=== PATIENT | male | born 1975 | race Caucasian/White ===

== ENCOUNTER 2018-10-19 18:51 | Inpatient (IN) | payer BC ==
[~2018-10-19] VITALS: Ht 180.3 cm; Wt 83.6 kg
[2018-10-19] MEDS ORDERED: IV NORMAL SALINE 1000ML BAG 1,000 ML IV ONE (19:45)
--- NOTE | 2018-10-19 19:48 | PHYS DOC ---
Past Medical History Past Medical History: Alcoholism Adult General Chief Complaint Chief Complaint: ALCOHOL INTOXICATION HPI HPI Patient is a 43 year old presented to the ER today seeking help with alcohol detox. Patient is heavy drinker for about 15 years. He was in rehab during [place] time last year. He was then sober for a month then got relapsed. He would like to get into detox program again. Patient denied any chest pain, no abdominal pain, no nausea or vomiting. Patient denied suicidal ideation or homicidal ideation . Patient said he tried to detox himself at home in the past , he had severe withdrawal seizure. Review of Systems Review of Systems Constitutional: Denies fever or chills [] Eyes: Denies change in visual acuity, redness, or eye pain [] HENT: Denies nasal congestion or sore throat [] Respiratory: Denies cough or shortness of breath [] Cardiovascular: No additional information not addressed in HPI [] GI: Denies abdominal pain, nausea, vomiting, bloody stools or diarrhea [] : Denies dysuria or hematuria [] Musculoskeletal: Denies back pain or joint pain [] Integument: Denies rash or skin lesions [] Neurologic: Denies headache, focal weakness or sensory changes [] Endocrine: Denies polyuria or polydipsia Psych: positive for anxiety, denied SUICIDAL IDEATION OR HOMICIDAL IDEATION. All other systems were reviewed and found to be within normal limits, except as documented in this note. Current Medications Current Medications Current Medications Medications (Trade) Dose Ordered Sig/Anaya Start Time Stop Time Status Last Admin Dose Admin Acetaminophen (Tylenol) 650 mg PRN Q4HRS PRN 10/19/18 23:15 10/20/18 23:14 Chlordiazepoxide (Librium) 50 mg PRN Q1HR PRN 10/19/18 23:15 10/20/18 00:57 50 MG Ondansetron HCl (Zofran) 4 mg PRN Q8HRS PRN 10/19/18 23:15 10/20/18 23:14 Potassium Chloride (Klor-Con) 40 meq 1X ONCE 10/19/18 20:30 10/19/18 20:31 DC 10/19/18 20:30 40 MEQ Sodium Chloride 1,000 ml @ 1,000 mls/hr 1X ONCE 10/19/18 19:45 10/19/18 20:44 DC 10/19/18 19:57 1,000 MLS/HR Allergies Allergies Allergies Coded Allergies Type Severity Reaction Last Updated Verified No Known Drug Allergies 10/19/18 No Physical Exam Physical Exam Constitutional: Well developed, well nourished, no acute distress, non-toxic appearance. [] HENT: Normocephalic, atraumatic, bilateral external ears normal, oropharynx moist, no oral exudates, nose normal. [] Eyes: PERRLA, EOMI, conjunctiva normal, no discharge. [] Neck: Normal range of motion, no tenderness, supple, no stridor. [] Cardiovascular:Heart rate regular rhythm, no murmur [] Lungs & Thorax: Bilateral breath sounds clear to auscultation [] Abdomen: Bowel sounds normal, soft, no tenderness, no masses, no pulsatile masses. [] Skin: Warm, dry, no erythema, no rash. [] Back: No tenderness, no CVA tenderness. [] Extremities: No tenderness, no cyanosis, no clubbing, ROM intact, no edema. [] Neurologic: Alert and oriented X 3, normal motor function, normal sensory function, no focal deficits noted. [] Psychologic: Affect normal, judgement normal, mood normal. [] Current Patient Data Vital Signs Vital Signs Date Time Temp Pulse Resp B/P (MAP) Pulse Ox O2 Delivery O2 Flow Rate FiO2 10/19/18 21:14 80 19 146/87 (106) 99 Room Air 10/19/18 19:35 97.7 97.7 Lab Values Laboratory Tests Test 10/19/18 19:20 10/19/18 19:44 Urine Collection Type Unknown Urine Color Yellow Urine Clarity Clear Urine pH 6.0 Urine Specific [place] 1.015 Urine Protein Negative mg/dL (NEG-TRACE) Urine Glucose (UA) Negative mg/dL (NEG) Urine Ketones (Stick) Negative mg/dL (NEG) Urine Blood Negative (NEG) Urine Nitrite Negative (NEG) Urine Bilirubin Negative (NEG) Urine Urobilinogen Dipstick 0.2 mg/dL (0.2 mg/dL) Urine Leukocyte Esterase Negative (NEG) Urine RBC Occ /HPF (0-2) Urine WBC Occ /HPF (0-4) Urine Squamous Epithelial Cells Few /LPF Urine Bacteria 0 /HPF (0-FEW) Urine Mucus Slight /LPF Urine Opiates Screen Neg (NEG) Urine Methadone Screen Neg (NEG) Urine Barbiturates Neg (NEG) Urine Phencyclidine Screen Neg (NEG) Urine Amphetamine/Methamphetamine Neg (NEG) Urine Benzodiazepines Screen Neg (NEG) Urine Cocaine Screen Neg (NEG) Urine Cannabinoids Screen Neg (NEG) Urine Ethyl Alcohol Pos (NEG) White Blood Count 8.4 x10^3/uL (4.0-11.0) Red Blood Count 5.09 x10^6/uL (4.30-5.70) Hemoglobin 16.2 g/dL (13.0-17.5) Hematocrit 47.1 % (39.0-53.0) Mean Corpuscular Volume 93 fL (79-100) Mean Corpuscular Hemoglobin 32 pg (25-35) Mean Corpuscular Hemoglobin Concent 34 g/dL (31-37) Red Cell Distribution Width 13.9 % (11.5-14.5) Platelet Count 269 x10^3/uL (140-400) Neutrophils (%) (Auto) 49 % (31-73) Lymphocytes (%) (Auto) 42 % (24-48) Monocytes (%) (Auto) 8 % (0-9) Eosinophils (%) (Auto) 1 % (0-3) Basophils (%) (Auto) 1 % (0-3) Neutrophils # (Auto) 4.1 x10^3uL (1.8-7.7) Lymphocytes # (Auto) 3.6 x10^3/uL (1.0-4.8) Monocytes # (Auto) 0.6 x10^3/uL (0.0-1.1) Eosinophils # (Auto) 0.1 x10^3/uL (0.0-0.7) Basophils # (Auto) 0.1 x10^3/uL (0.0-0.2) Prothrombin Time 13.1 SEC (11.7-14.0) Prothrombin Time INR 1.0 (0.8-1.1) PTT 31 SEC (24-38) Sodium Level 142 mmol/L (136-145) Potassium Level 3.3 mmol/L (3.5-5.1) L Chloride Level 105 mmol/L (98-107) Carbon Dioxide Level 26 mmol/L (21-32) Anion Gap 11 (6-14) Blood Urea Nitrogen 14 mg/dL (8-26) Creatinine 1.1 mg/dL (0.7-1.3) Estimated GFR (Cockcroft-Gault) 73.8 BUN/Creatinine Ratio 13 (6-20) Glucose Level 125 mg/dL (70-99) H Calcium Level 8.0 mg/dL (8.5-10.1) L Magnesium Level 2.2 mg/dL (1.8-2.4) Total Bilirubin 0.4 mg/dL (0.2-1.0) Aspartate Amino Transferase (AST) 39 U/L (15-37) H Alanine Aminotransferase (ALT) 32 U/L (16-63) Alkaline Phosphatase 76 U/L (46-116) Total Protein 7.0 g/dL (6.4-8.2) Albumin 3.5 g/dL (3.4-5.0) Albumin/Globulin Ratio 1.0 (1.0-1.7) Lipase 114 U/L (73-393) Salicylates Level < 2.8 mg/dL (2.8-20.0) L Salicylate Last Dose Date Salicylate Last Dose Time Acetaminophen Level < 2 mcg/ml (10-30) L Acetaminophen Last Dose Date Acetaminophen Last Dose Time Ethyl Alcohol Level 299 mg/dL (0-10) H Laboratory Tests 10/19/18 19:44 Laboratory Tests 10/19/18 19:44 EKG EKG [] Radiology/Procedures Radiology/Procedures [] Course & Med Decision Making Course & Med Decision Making Pertinent Labs and Imaging studies reviewed. (See chart for details) Patient was evaluated by PAT team, no outpatient detox available for patient. Most of detox centers recommended patient to be admitted for medical detox for 24 hours before they can accept patient due to previous withdrawal seizure. Dragon Disclaimer Dragon Disclaimer This electronic medical record was generated, in whole or in part, using a voice recognition dictation system. Departure Departure Impression: Primary Impression: Alcohol abuse Additional Impression: Anxiety Disposition: 09 ADMITTED INPATIENT Admitting Physician: Faina Barnett Condition: STABLE Referrals: BARTOLO RUBY MD (PCP) Problem Qualifiers SIVAN MIRAMONTES DO Oct 19, 2018 19:48
[2018-10-19 19:53] LABS: BASO # 0.1 x10^3/uL (0.0-0.2); BASO % 1 % (0-3); EOS # 0.1 x10^3/uL (0.0-0.7); EOS % 1 % (0-3); HEMATOCRIT 47.1 % (39.0-53.0); HEMOGLOBIN 16.2 g/dL (13.0-17.5); LYMPH # 3.6 x10^3/uL (1.0-4.8); LYMPH % 42 % (24-48); MEAN CORPUSCULAR HEMOGLOBIN 32 pg (25-35); MEAN CORPUSCULAR HGB CONC 34 g/dL (31-37); MEAN CORPUSCULAR VOLUME 93 fL (79-100); MONO # 0.6 x10^3/uL (0.0-1.1); MONO % 8 % (0-9); NEUT # 4.1 x10^3uL (1.8-7.7); NEUT % 49 % (31-73); PLATELET COUNT 269 x10^3/uL (140-400); RED BLOOD COUNT 5.09 x10^6/uL (4.30-5.70); RED CELL DISTRIBUTION WIDTH 13.9 % (11.5-14.5); WHITE BLOOD COUNT 8.4 x10^3/uL (4.0-11.0)
[2018-10-19 19:54] LABS: BILIRUBIN,URINE NEGATIVE (NEG); CLARITY,URINE CLEAR; COLOR,URINE YELLOW; NITRITE,URINE NEGATIVE (NEG); PROTEIN,URINE NEGATIVE (NEG-TRACE); UROBILINOGEN,URINE 0.2 mg/dL (0.2 mg/dL)
[2018-10-19 19:59] LABS: BACTERIA,URINE 0 /HPF (0-FEW); RBC,URINE OCC /HPF (0-2); SQUAMOUS EPITHELIAL CELL,UR FEW /LPF; WBC,URINE OCC /HPF (0-4)
[2018-10-19 20:01] LABS: BARBITURATES NEG (NEG); BENZODIAZEPINES NEG (NEG); CANNABINOIDS NEG (NEG); COCAINE NEG (NEG); METHADONE NEG (NEG); OPIATES NEG (NEG); PHENCYCLIDINE NEG (NEG)
[2018-10-19 20:01] LABS: PROTHROMBIN TIME PATIENT 13.1 SEC (11.7-14.0)
[2018-10-19 20:04] LABS: AMPHETAMINE/METHAMPHETAMINE NEG (NEG)
[2018-10-19 20:08] LABS: CREATININE 1.1 mg/dL (0.7-1.3); GFR 73.8; POTASSIUM 3.3 mmol/L (3.5-5.1)
[2018-10-19 20:09] LABS: ACETAMIN < 2 mcg/ml (10-30); ETHANOL 299 mg/dL (0-10); SALIC < 2.8 mg/dL (2.8-20.0)
[2018-10-19 20:13] LABS: ALBUMIN 3.5 g/dL (3.4-5.0); MAGNESIUM 2.2 mg/dL (1.8-2.4); TOTAL BILIRUBIN 0.4 mg/dL (0.2-1.0)
[2018-10-19] MEDS ORDERED: chlordiazePOXIDE HCL 25 MG CAPSULE PO ONE (20:30)
[2018-10-19] MEDS ORDERED: POTASSIUM CHLORIDE 20 MEQ TABLET.ER. PO ONE (20:30)
[2018-10-19] MEDS ORDERED: ACETAMINOPHEN 325 MG TABLET. PO PRN (23:15)
[2018-10-19] MEDS ORDERED: ONDANSETRON PF 4 MG/2 ML VIAL. IV PRN (23:15)
[2018-10-19] MEDS ORDERED: chlordiazePOXIDE HCL 25 MG CAPSULE PO PRN (23:15)
[2018-10-19] MEDS: IV NORMAL SALINE 1000ML BAG 1,000 ML IV SCH (23:30)
[2018-10-19] MEDS ORDERED: MULTIVIT INFUSN,ADULT 4,VIT K 10 ML, THIAMINE INJ 100 MG, FOLIC ACID INJ 1 MG in IV NOR... IV ONE (23:45)
[2018-10-20] VITALS (7 sets, daily range): BP systolic 118–149; BP diastolic 81–93
--- NOTE | 2018-10-20 08:57 | PDOC1 ---
History and Physical Date of Admission Date of Admission DATE: 10/20/18 TIME: 08:54 Identification/Chief Complaint Chief Complaint Alcohol withdrawal Source Source: Patient History of Present Illness History of Present Illness 43 year old presented to the ER 10/19 seeking help with alcohol detox. Patient is heavy drinker for about 15 years. He was in rehab during [place] time last year. He was then sober for a month then got relapsed. He would like to get into detox program again. Patient denied any chest pain, no abdominal pain, no nausea or vomiting. Patient denied suicidal ideation or homicidal ideation. Patient said he tried to detox himself at home in the past, he had severe withdrawal seizures. He is tremulous even when his ETOH level is less than 300mg /dL and gets confused quickly per his own history Past Medical History Cardiovascular: No pertinent hx Pulmonary: No pertinent hx GI: No pertinent hx Heme/Onc: No pertinent hx Hepatobiliary: No pertinent hx Psych: Addictions Rheumatologic: No pertinent hx Infectious disease: No pertinent hx ENT: No pertinent hx Renal/: No pertinent hx Endocrine: No pertinent hx Dermatology: No pertinent hx Past Surgical History Past Surgical History: No pertinent history Family History Family History: Alcohol Abuse, Drug Abuse Social History Smoke: <1 pack per day ALCOHOL: heavy Drugs: None Current Problem List Problem List Problems Medical Problems: (1) Alcohol abuse Status: Acute (2) Anxiety Status: Acute Current Medications Current Medications Current Medications Sodium Chloride 1,000 ml @ 1,000 mls/hr 1X ONCE IV Last administered on at 19:57; Start 10/19/18 at 19:45; Stop 10/19/18 at 20:44; Status DC Potassium Chloride (Klor-Con) 40 meq 1X ONCE PO Last administered on at 20:30; Start 10/19/18 at 20:30; Stop 10/19/18 at 20:31; Status DC Chlordiazepoxide (Librium) 50 mg 1X ONCE PO Last administered on 10/19/18at 20: 30; Start 10/19/18 at 20:30; Stop 10/19/18 at 20:31; Status DC Ondansetron HCl (Zofran) 4 mg PRN Q8HRS PRN IV NAUSEA/VOMITING 1ST CHOICE; Start 10/19/18 at 23:15; Stop 10/20/18 at 23:14 Sodium Chloride 1,000 ml @ 100 mls/hr Q10H IV ; Start 10/19/18 at 23:30; Stop 10/20/18 at 23:29 Acetaminophen (Tylenol) 650 mg PRN Q4HRS PRN PO FEVER; Start 10/19/18 at 23:15 ; Stop 10/20/18 at 23:14 Multivitamins 10 ml/Thiamine HCl 100 mg/Folic Acid 1 mg/Sodium Chloride 1,011.2 ml @ 100 mls/ hr 1X ONCE IV Last administered on 10/20/18at 00:20; Start at 23:45; Stop 10/20/18 at 09:51 Multivitamins (Thera M Plus) 1 tab DAILY PO ; Start 10/20/18 at 09:00 Folic Acid (Folic Acid) 1 mg DAILY PO ; Start 10/20/18 at 09:00 Thiamine Mononitrate (Vitamin B-1) 100 mg DAILY PO ; Start 10/20/18 at 09:00 Chlordiazepoxide (Librium) 50 mg PRN Q1HR PRN PO For CIWA 8-14 Last administered on 10/20/18at 00:57; Start 10/19/18 at 23:15 Allergies Allergies: Coded Allergies: No Known Drug Allergies (Unverified , 10/19/18) ROS General: YES: Chills, Fatigue, Malaise PSYCHOLOGICAL ROS: YES: Anxiety; No: Behavioral Disorder, Concentration difficultie, Decreased libido, Depression, Disorientation, Hallucinations, Hostility, Irritablity, Memory difficulties, Mood Swings, Obsessive thoughts, Physical abuse, Sexual abuse, Sleep disturbances, Suicidal ideation, Other Eyes: No Blurry vision, No Decreased vision, No Double vision, No Dry eyes, No Excessive tearing, No Eye Pain, No Itchy Eyes, No Loss of vision, No Photophobia , No Scotomata, No Uses contacts, No Uses glasses, No Other HEENT: No: Heacaches, Visual Changes, Hearing change, Nasal congestion, Nasal discharge, Oral lesions, Sinus pain, Sore Throat, Epistaxis, Sneezing, Snoring, Tinnitus, Vertigo, Vocal changes, Other ALLERGY AND IMMUNOLOGY: No: Hives, Insect Bite Sensitivity, Itchy/Watery Eyes, Nasal Congestion, Post Nasal Drip, Seasonal Allergies, Other Hematological and Lymphatic: No: Bleeding Problems, Blood Clots, Blood Transfusions, Brusing, Night Sweats, Pallor, Swollen Lymph Nodes, Other ENDOCRINE: No: Breast Changes, Galactorrhea, Hair Pattern Changes, Hot Flashes , Malaise/lethargy, Mood Swings, Palpitations, Polydipsia/polyuria, Skin Changes , Temperature Intolerance, Unexpected Weight Changes, Other Breast: No New/Changing Breast Lumps, No Nipple changes, No Nipple discharge, No Other Respiratory: No: Cough, Hemoptysis, Orthopnea, Pleuritic Pain, Shortness of breath, SOB with excertion, Sputum Changes, Stridor, Tachypnea, Wheezing, Other Cardiovascular: No Chest Pain, No Palpitations, No Orthopnea, No Paroxysmal Noc. Dyspnea, No Edema, No Lt Headedness, No Other Gastrointestinal: Yes Nausea, Yes Abdominal Pain; No Vomiting, No Diarrhea, No Constipation, No Melena, No Hematochezia, No Other Genitourinary: No Dysuria, No Frequency, No Incontinence, No Hematuria, No Retention, No Discharge, No Urgency, No Pain, No Flank Pain, No Other, No , No , No , No , No , No , No Musculoskeletal: Yes Gait Disturbance; No Joint Pain, No Joint Stiffness, No Joint Swelling, No Muscle Pain, No Muscular Weakness, No Pain In:, No Swelling In:, No Other Neurological: No Behavorial Changes, No Bowel/Bladder ControlChng, No Confusion , No Dizziness, No Gait Disturbance, No Headaches, No Impaired Coord/balance, No Memory Loss, No Numbness/Tingling, No Seizures, No Speech Problems, No Tremors, No Visual Changes, No Weakness, No Other Skin: No Dry Skin, No Eczema, No Hair Changes, No Lumps, No Mole Changes, No Mottling, No Nail Changes, No Pruritus, No Rash, No Skin Lesion Changes, No Other, No Acne Physical Exam General: Alert, Cooperative, mild distress HEENT: Atraumatic, PERRLA, EOMI, Mucous membr. moist/pink, Other (horizontal nystagmus) Lungs: Clear to auscultation, Normal air movement Heart: S1S2, RRR Abdomen: Normal bowel sounds, Soft, No tenderness, No hepatosplenomegaly, No masses Male Genitals Exam: normal genitalia, normal prostate Extremities: No clubbing, No cyanosis, No edema, Normal pulses, No tenderness/ swelling Skin: No rashes, No breakdown, No significant lesion Neuro: Normal gait, Normal speech, Strength at 5/5 X4 ext, Normal tone, Sensation intact, Cranial nerves 3-12 NL, Reflexes 2+ Psych/Mental Status: Mental status NL, Mood NL Vitals Vitals Vital Signs Date Time Temp Pulse Resp B/P (MAP) Pulse Ox O2 Delivery O2 Flow Rate FiO2 10/20/18 07:00 97.7 63 17 135/86 (102) 95 Room Air 97.7 Labs Labs Laboratory Tests Test 10/19/18 19:20 10/19/18 19:44 Urine Collection Type Unknown Urine Color Yellow Urine Clarity Clear Urine pH 6.0 Urine Specific [place] 1.015 Urine Protein Negative mg/dL (NEG-TRACE) Urine Glucose (UA) Negative mg/dL (NEG) Urine Ketones (Stick) Negative mg/dL (NEG) Urine Blood Negative (NEG) Urine Nitrite Negative (NEG) Urine Bilirubin Negative (NEG) Urine Urobilinogen Dipstick 0.2 mg/dL (0.2 mg/dL) Urine Leukocyte Esterase Negative (NEG) Urine RBC Occ /HPF (0-2) Urine WBC Occ /HPF (0-4) Urine Squamous Epithelial Cells Few /LPF Urine Bacteria 0 /HPF (0-FEW) Urine Mucus Slight /LPF Urine Opiates Screen Neg (NEG) Urine Methadone Screen Neg (NEG) Urine Barbiturates Neg (NEG) Urine Phencyclidine Screen Neg (NEG) Urine Amphetamine/Methamphetamine Neg (NEG) Urine Benzodiazepines Screen Neg (NEG) Urine Cocaine Screen Neg (NEG) Urine Cannabinoids Screen Neg (NEG) Urine Ethyl Alcohol Pos (NEG) White Blood Count 8.4 x10^3/uL (4.0-11.0) Red Blood Count 5.09 x10^6/uL (4.30-5.70) Hemoglobin 16.2 g/dL (13.0-17.5) Hematocrit 47.1 % (39.0-53.0) Mean Corpuscular Volume 93 fL (79-100) Mean Corpuscular Hemoglobin 32 pg (25-35) Mean Corpuscular Hemoglobin Concent 34 g/dL (31-37) Red Cell Distribution Width 13.9 % (11.5-14.5) Platelet Count 269 x10^3/uL (140-400) Neutrophils (%) (Auto) 49 % (31-73) Lymphocytes (%) (Auto) 42 % (24-48) Monocytes (%) (Auto) 8 % (0-9) Eosinophils (%) (Auto) 1 % (0-3) Basophils (%) (Auto) 1 % (0-3) Neutrophils # (Auto) 4.1 x10^3uL (1.8-7.7) Lymphocytes # (Auto) 3.6 x10^3/uL (1.0-4.8) Monocytes # (Auto) 0.6 x10^3/uL (0.0-1.1) Eosinophils # (Auto) 0.1 x10^3/uL (0.0-0.7) Basophils # (Auto) 0.1 x10^3/uL (0.0-0.2) Prothrombin Time 13.1 SEC (11.7-14.0) Prothromb Time International Ratio 1.0 (0.8-1.1) Activated Partial Thromboplast Time 31 SEC (24-38) Sodium Level 142 mmol/L (136-145) Potassium Level 3.3 mmol/L (3.5-5.1) Chloride Level 105 mmol/L (98-107) Carbon Dioxide Level 26 mmol/L (21-32) Anion Gap 11 (6-14) Blood Urea Nitrogen 14 mg/dL (8-26) Creatinine 1.1 mg/dL (0.7-1.3) Estimated GFR (Cockcroft-Gault) 73.8 BUN/Creatinine Ratio 13 (6-20) Glucose Level 125 mg/dL (70-99) Calcium Level 8.0 mg/dL (8.5-10.1) Magnesium Level 2.2 mg/dL (1.8-2.4) Total Bilirubin 0.4 mg/dL (0.2-1.0) Aspartate Amino Transf (AST/SGOT) 39 U/L (15-37) Alanine Aminotransferase (ALT/SGPT) 32 U/L (16-63) Alkaline Phosphatase 76 U/L (46-116) Total Protein 7.0 g/dL (6.4-8.2) Albumin 3.5 g/dL (3.4-5.0) Albumin/Globulin Ratio 1.0 (1.0-1.7) Lipase 114 U/L (73-393) Salicylates Level < 2.8 mg/dL (2.8-20.0) Salicylate Last Dose Date Salicylate Last Dose Time Acetaminophen Level < 2 mcg/ml (10-30) Acetaminophen Last Dose Date Acetaminophen Last Dose Time Ethyl Alcohol Level 299 mg/dL (0-10) Laboratory Tests Test 10/19/18 19:20 10/19/18 19:44 Urine Collection Type Unknown Urine Color Yellow Urine Clarity Clear Urine pH 6.0 Urine Specific [place] 1.015 Urine Protein Negative mg/dL (NEG-TRACE) Urine Glucose (UA) Negative mg/dL (NEG) Urine Ketones (Stick) Negative mg/dL (NEG) Urine Blood Negative (NEG) Urine Nitrite Negative (NEG) Urine Bilirubin Negative (NEG) Urine Urobilinogen Dipstick 0.2 mg/dL (0.2 mg/dL) Urine Leukocyte Esterase Negative (NEG) Urine RBC Occ /HPF (0-2) Urine WBC Occ /HPF (0-4) Urine Squamous Epithelial Cells Few /LPF Urine Bacteria 0 /HPF (0-FEW) Urine Mucus Slight /LPF Urine Opiates Screen Neg (NEG) Urine Methadone Screen Neg (NEG) Urine Barbiturates Neg (NEG) Urine Phencyclidine Screen Neg (NEG) Urine Amphetamine/Methamphetamine Neg (NEG) Urine Benzodiazepines Screen Neg (NEG) Urine Cocaine Screen Neg (NEG) Urine Cannabinoids Screen Neg (NEG) Urine Ethyl Alcohol Pos (NEG) White Blood Count 8.4 x10^3/uL (4.0-11.0) Red Blood Count 5.09 x10^6/uL (4.30-5.70) Hemoglobin 16.2 g/dL (13.0-17.5) Hematocrit 47.1 % (39.0-53.0) Mean Corpuscular Volume 93 fL (79-100) Mean Corpuscular Hemoglobin 32 pg (25-35) Mean Corpuscular Hemoglobin Concent 34 g/dL (31-37) Red Cell Distribution Width 13.9 % (11.5-14.5) Platelet Count 269 x10^3/uL (140-400) Neutrophils (%) (Auto) 49 % (31-73) Lymphocytes (%) (Auto) 42 % (24-48) Monocytes (%) (Auto) 8 % (0-9) Eosinophils (%) (Auto) 1 % (0-3) Basophils (%) (Auto) 1 % (0-3) Neutrophils # (Auto) 4.1 x10^3uL (1.8-7.7) Lymphocytes # (Auto) 3.6 x10^3/uL (1.0-4.8) Monocytes # (Auto) 0.6 x10^3/uL (0.0-1.1) Eosinophils # (Auto) 0.1 x10^3/uL (0.0-0.7) Basophils # (Auto) 0.1 x10^3/uL (0.0-0.2) Prothrombin Time 13.1 SEC (11.7-14.0) Prothromb Time International Ratio 1.0 (0.8-1.1) Activated Partial Thromboplast Time 31 SEC (24-38) Sodium Level 142 mmol/L (136-145) Potassium Level 3.3 mmol/L (3.5-5.1) Chloride Level 105 mmol/L (98-107) Carbon Dioxide Level 26 mmol/L (21-32) Anion Gap 11 (6-14) Blood Urea Nitrogen 14 mg/dL (8-26) Creatinine 1.1 mg/dL (0.7-1.3) Estimated GFR (Cockcroft-Gault) 73.8 BUN/Creatinine Ratio 13 (6-20) Glucose Level 125 mg/dL (70-99) Calcium Level 8.0 mg/dL (8.5-10.1) Magnesium Level 2.2 mg/dL (1.8-2.4) Total Bilirubin 0.4 mg/dL (0.2-1.0) Aspartate Amino Transf (AST/SGOT) 39 U/L (15-37) Alanine Aminotransferase (ALT/SGPT) 32 U/L (16-63) Alkaline Phosphatase 76 U/L (46-116) Total Protein 7.0 g/dL (6.4-8.2) Albumin 3.5 g/dL (3.4-5.0) Albumin/Globulin Ratio 1.0 (1.0-1.7) Lipase 114 U/L (73-393) Salicylates Level < 2.8 mg/dL (2.8-20.0) Salicylate Last Dose Date Salicylate Last Dose Time Acetaminophen Level < 2 mcg/ml (10-30) Acetaminophen Last Dose Date Acetaminophen Last Dose Time Ethyl Alcohol Level 299 mg/dL (0-10) VTE Prophylaxis Ordered VTE Prophylaxis Devices: No VTE Pharmacological Prophylaxi: No Assessment/Plan Assessment/Plan A/P: Acute alcohol withdrawal - CIWA precautions, low threshold for ICU transfer if greater than 10mg of ativan required in a 1 hour time. Clonidine for withdrawal sx as well. PAT team and SW to see Transaminitis - alcoholic hepatitis, will monitor Hypocalcemia - likely mild protein calorie malnutrition, will monitor. Tums prn Hyperglycemia - likely 2/2 initial intoxication on ETOH, will monitor. No hx of DM Hypokalemia - will replace orally, check mag FEN - General diet, banana bag x5 PPX - SCDs FULL CODE Inpatient for acute alcohol withdrawal at least 2 midnights. TAMMY SHABAZZ MD Oct 20, 2018 08:57
[2018-10-20] MEDS ORDERED: LORazepam 1 MG TABLET PO PRN (09:00)
[2018-10-20] MEDS: THIAMINE 100 MG TABLET. PO SCH (09:32)
[2018-10-20] MEDS: MULTIVITAMIN with MINERAL TABLET. PO SCH (09:32)
[2018-10-20] MEDS: FOLIC ACID 1 MG TABLET. PO SCH (09:32)
[2018-10-20] MEDS: IV NORMAL SALINE 1000ML BAG 1,000 ML IV SCH (09:35)
[2018-10-20] MEDS: cloNIDine HCL 0.1 MG TABLET PO PRN (11:26)
--- NOTE | 2018-10-20 13:48 | NUR ---
SW following for discharge planning. Discussed with RNElizabeth from the PAT team met with pt in the ER. SW spoke with Elizabeth, Elizabeth reported pt had been to [facility] and discharge from there in mid July. Pt had agreed to following up outpatient with the [facility] center during assessment. SW met with pt to discuss discharge planning, pt is still agreeable to following up outpatient rather than going to inpatient alcohol rehab. RN notified. Pt has [employer] [place] insurance, card has already been given to registration. SW will continue to follow for any discharge planning needs.
[2018-10-20] MEDS ORDERED: CHLO25CA9 PO (18:37)
[2018-10-20] MEDS ORDERED: LISI-334 PO (18:37)
[2018-10-20] MEDS ORDERED: NALT50TA PO (18:37)
[2018-10-20] MEDS ORDERED: HYDR50CA2 PO (18:37)
[2018-10-21] MEDS: IV NORMAL SALINE 1000ML BAG 1,000 ML IV SCH (00:06)
[2018-10-21 03:00] VITALS: BP 147/94
[2018-10-21 07:34] VITALS: BP 144/96
[2018-10-21] MEDS: MULTIVITAMIN with MINERAL TABLET. PO SCH (08:27)
[2018-10-21] MEDS: FOLIC ACID 1 MG TABLET. PO SCH (08:27)
[2018-10-21] MEDS: THIAMINE 100 MG TABLET. PO SCH (08:27)
[2018-10-21] MEDS: cloNIDine HCL 0.1 MG TABLET PO PRN ×2 (08:38→18:21)
--- NOTE | 2018-10-21 09:53 | PDOC ---
PROGRESS NOTES Chief Complaint Chief Complaint Acute alcohol withdrawal - CIWA precautions, low threshold for ICU transfer if greater than 10mg of ativan required in a 1 hour time. Clonidine for withdrawal sx as well. PAT team and SW to see Transaminitis - alcoholic hepatitis, will monitor Hypocalcemia - likely mild protein calorie malnutrition, will monitor. Tums prn Hyperglycemia - likely 2/2 initial intoxication on ETOH, will monitor. No hx of DM Hypokalemia - will replace orally, check mag History of Present Illness History of Present Illness 43 yo presented to the ER 10/19 seeking help with alcohol detox. Patient is heavy drinker for about 15 years. He was in rehab during [facility] time last year. He was then sober for a month then got relapsed. He would like to get into detox program again. Patient denied any chest pain, no abdominal pain, no nausea or vomiting. Patient denied suicidal ideation or homicidal ideation. Had CIWA > 18 yesterday, but 11 this morning on lorazepam with fewer IV doses. He would like to consider restarting his home naltrexone. Mag level 1.6 this morning and bili up to 1.7. No BM Plan: Replace mag Bowel regimen Vitals Vitals Vital Signs Date Time Temp Pulse Resp B/P (MAP) Pulse Ox O2 Delivery O2 Flow Rate FiO2 10/21/18 08:38 60 144/96 10/21/18 07:34 97.1 20 96 Room Air 97.1 Physical Exam General: Alert, Cooperative, mild distress Abdomen: Normal bowel sounds, Soft, No tenderness, No hepatosplenomegaly, No masses Extremities: No clubbing, No cyanosis, No edema, Normal pulses, No tenderness/ swelling Skin: No rashes, No breakdown, No significant lesion Assessment and Plan Assessmemt and Plan Problems Medical Problems: (1) Alcohol abuse Status: Acute (2) Anxiety Status: Acute Comment Review of Relevant I have reviewed the following items geoffrey (where applicable) has been applied. Labs Laboratory Tests Test 10/19/18 19:20 10/19/18 19:44 Urine Collection Type Unknown Urine Color Yellow Urine Clarity Clear Urine pH 6.0 Urine Specific [place] 1.015 Urine Protein Negative mg/dL (NEG-TRACE) Urine Glucose (UA) Negative mg/dL (NEG) Urine Ketones (Stick) Negative mg/dL (NEG) Urine Blood Negative (NEG) Urine Nitrite Negative (NEG) Urine Bilirubin Negative (NEG) Urine Urobilinogen Dipstick 0.2 mg/dL (0.2 mg/dL) Urine Leukocyte Esterase Negative (NEG) Urine RBC Occ /HPF (0-2) Urine WBC Occ /HPF (0-4) Urine Squamous Epithelial Cells Few /LPF Urine Bacteria 0 /HPF (0-FEW) Urine Mucus Slight /LPF Urine Opiates Screen Neg (NEG) Urine Methadone Screen Neg (NEG) Urine Barbiturates Neg (NEG) Urine Phencyclidine Screen Neg (NEG) Urine Amphetamine/Methamphetamine Neg (NEG) Urine Benzodiazepines Screen Neg (NEG) Urine Cocaine Screen Neg (NEG) Urine Cannabinoids Screen Neg (NEG) Urine Ethyl Alcohol Pos (NEG) White Blood Count 8.4 x10^3/uL (4.0-11.0) Red Blood Count 5.09 x10^6/uL (4.30-5.70) Hemoglobin 16.2 g/dL (13.0-17.5) Hematocrit 47.1 % (39.0-53.0) Mean Corpuscular Volume 93 fL (79-100) Mean Corpuscular Hemoglobin 32 pg (25-35) Mean Corpuscular Hemoglobin Concent 34 g/dL (31-37) Red Cell Distribution Width 13.9 % (11.5-14.5) Platelet Count 269 x10^3/uL (140-400) Neutrophils (%) (Auto) 49 % (31-73) Lymphocytes (%) (Auto) 42 % (24-48) Monocytes (%) (Auto) 8 % (0-9) Eosinophils (%) (Auto) 1 % (0-3) Basophils (%) (Auto) 1 % (0-3) Neutrophils # (Auto) 4.1 x10^3uL (1.8-7.7) Lymphocytes # (Auto) 3.6 x10^3/uL (1.0-4.8) Monocytes # (Auto) 0.6 x10^3/uL (0.0-1.1) Eosinophils # (Auto) 0.1 x10^3/uL (0.0-0.7) Basophils # (Auto) 0.1 x10^3/uL (0.0-0.2) Prothrombin Time 13.1 SEC (11.7-14.0) Prothromb Time International Ratio 1.0 (0.8-1.1) Activated Partial Thromboplast Time 31 SEC (24-38) Sodium Level 142 mmol/L (136-145) Potassium Level 3.3 mmol/L (3.5-5.1) Chloride Level 105 mmol/L (98-107) Carbon Dioxide Level 26 mmol/L (21-32) Anion Gap 11 (6-14) Blood Urea Nitrogen 14 mg/dL (8-26) Creatinine 1.1 mg/dL (0.7-1.3) Estimated GFR (Cockcroft-Gault) 73.8 BUN/Creatinine Ratio 13 (6-20) Glucose Level 125 mg/dL (70-99) Calcium Level 8.0 mg/dL (8.5-10.1) Magnesium Level 2.2 mg/dL (1.8-2.4) Total Bilirubin 0.4 mg/dL (0.2-1.0) Aspartate Amino Transf (AST/SGOT) 39 U/L (15-37) Alanine Aminotransferase (ALT/SGPT) 32 U/L (16-63) Alkaline Phosphatase 76 U/L (46-116) Total Protein 7.0 g/dL (6.4-8.2) Albumin 3.5 g/dL (3.4-5.0) Albumin/Globulin Ratio 1.0 (1.0-1.7) Lipase 114 U/L (73-393) Salicylates Level < 2.8 mg/dL (2.8-20.0) Salicylate Last Dose Date Salicylate Last Dose Time Acetaminophen Level < 2 mcg/ml (10-30) Acetaminophen Last Dose Date Acetaminophen Last Dose Time Ethyl Alcohol Level 299 mg/dL (0-10) Medications Current Medications Sodium Chloride 1,000 ml @ 1,000 mls/hr 1X ONCE IV Last administered on at 19:57; Start 10/19/18 at 19:45; Stop 10/19/18 at 20:44; Status DC Potassium Chloride (Klor-Con) 40 meq 1X ONCE PO Last administered on at 20:30; Start 10/19/18 at 20:30; Stop 10/19/18 at 20:31; Status DC Chlordiazepoxide (Librium) 50 mg 1X ONCE PO Last administered on 10/19/18at 20: 30; Start 10/19/18 at 20:30; Stop 10/19/18 at 20:31; Status DC Ondansetron HCl (Zofran) 4 mg PRN Q8HRS PRN IV NAUSEA/VOMITING 1ST CHOICE; Start 10/19/18 at 23:15; Stop 10/20/18 at 23:14; Status DC Sodium Chloride 1,000 ml @ 100 mls/hr Q10H IV Last administered on 10/21/18at 00 :06; Start 10/19/18 at 23:30; Stop 10/20/18 at 23:29; Status DC Acetaminophen (Tylenol) 650 mg PRN Q4HRS PRN PO FEVER; Start 10/19/18 at 23:15 ; Stop 10/20/18 at 23:14; Status DC Multivitamins 10 ml/Thiamine HCl 100 mg/Folic Acid 1 mg/Sodium Chloride 1,011.2 ml @ 100 mls/ hr 1X ONCE IV Last administered on 10/20/18at 00:20; Start at 23:45; Stop 10/20/18 at 09:51; Status DC Multivitamins (Thera M Plus) 1 tab DAILY PO Last administered on 10/21/18at 08:27 ; Start 10/20/18 at 09:00 Folic Acid (Folic Acid) 1 mg DAILY PO Last administered on 10/21/18at 08:27; Start 10/20/18 at 09:00 Thiamine Mononitrate (Vitamin B-1) 100 mg DAILY PO Last administered on at 08:27; Start 10/20/18 at 09:00 Chlordiazepoxide (Librium) 50 mg PRN Q1HR PRN PO For CIWA 8-14 Last administered on 10/20/18at 00:57; Start 10/19/18 at 23:15; Stop 10/20/18 at 08:57; Status DC Lorazepam (Ativan) 2 mg PRN Q1HR PRN PO For CIWA 8-14; Start 10/20/18 at 09:00 Lorazepam (Ativan) 2 mg PRN Q1HR PRN IV For CIWA 8-14 Last administered on at 08:36; Start 10/20/18 at 09:00 Clonidine HCl (Catapres) 0.1 mg PRN Q1HR PRN PO SBP > 180 or DBP > 100, MRX3 Last administered on 10/21/18at 08:38; Start 10/20/18 at 09:00 Active Scripts Active Reported Hydroxyzine Pamoate 50 Mg Capsule 1 Cap PO DAILY Chlordiazepoxide Hcl 25 Mg Capsule 25 Mg PO PRN Q6HRS Naltrexone Hcl 50 Mg Tablet 1 Tab PO DAILY Lisinopril 20 Mg Tablet 1 Tab PO DAILY Vitals/I & O Vital Sign - Last 24 Hours 10/20/18 10/20/18 10/20/18 10/20/18 11:00 11:26 15:00 19:00 Temp 97.9 98.2 98.1 97.9 98.2 98.1 Pulse 67 63 75 72 Resp 18 18 18 B/P (MAP) 135/91 (106) 135/86 131/83 (99) 149/90 (109) Pulse Ox 98 98 99 O2 Delivery Room Air Room Air Room Air 10/20/18 10/20/18 10/21/18 10/21/18 19:45 23:00 03:00 07:34 Temp 98.1 98.9 97.1 98.1 98.9 97.1 Pulse 53 56 60 Resp 18 18 20 B/P (MAP) 142/93 (109) 147/94 (111) 144/96 (112) Pulse Ox 98 99 96 O2 Delivery Room Air Room Air Room Air Room Air 10/21/18 08:38 Pulse 60 B/P (MAP) 144/96 Intake and Output 10/20/18 10/20/18 10/21/18 14:59 22:59 06:59 Intake Total 495 ml 325 ml Balance 495 ml 325 ml TAMMY SHABAZZ MD Oct 21, 2018 09:53
--- NOTE | 2018-10-21 10:25 | NUR ---
SW following. Discussed with RN, pt is still detoxing today. [facility] SW will continue to follow.
[2018-10-21] MEDS ORDERED: MULTIVIT INFUSN,ADULT 4,VIT K 10 ML, THIAMINE INJ 100 MG, FOLIC ACID INJ 1 MG in IV NOR... IV ONE (10:30)
[2018-10-21 11:02] VITALS: BP 136/92
[2018-10-21 12:02] LABS: ALBUMIN 2.9 g/dL (3.4-5.0); ALBUMIN/GLOBULIN RATIO 0.9 (1.0-1.7); GFR 82.3; MAGNESIUM 1.7 mg/dL (1.8-2.4); POTASSIUM 4.1 mmol/L (3.5-5.1); TOTAL BILIRUBIN 1.7 mg/dL (0.2-1.0)
[2018-10-21] MEDS ORDERED: MAGNESIUM CITRATE 296 ML SOLUTION. PO ONE (12:15)
[2018-10-21] MEDS ORDERED: SENNOSIDES/DOCUSATE 8.6/50MG TABLET. PO PRN (12:15)
[2018-10-21] MEDS ORDERED: MAGNESIUM SULFATE 4GM 100 ML IV ONE (12:30)
[2018-10-21 15:06] VITALS: BP 109/65
[2018-10-21 19:15] VITALS: BP 154/96
[2018-10-21 23:19] VITALS: BP 125/87
[2018-10-22 03:07] VITALS: BP 130/82
[2018-10-22 07:00] VITALS: BP 140/92
--- NOTE | 2018-10-22 09:13 | NUR ---
SW following. Discussed with RN, RN advised no SW needs.
[2018-10-22] MEDS: THIAMINE 100 MG TABLET. PO SCH (09:14)
[2018-10-22] MEDS: FOLIC ACID 1 MG TABLET. PO SCH (09:14)
[2018-10-22] MEDS: MULTIVITAMIN with MINERAL TABLET. PO SCH (09:14)
[2018-10-22] MEDS ORDERED: LORA-434 PO (10:39)
[2018-10-22] MEDS ORDERED: HYDR50CA2 PO (10:39)
[2018-10-22] MEDS ORDERED: NALT50TA PO (10:39)
--- NOTE | 2018-10-22 10:42 | PDOC3 ---
Discharge Summary Visit Information Date of Admission: Oct 20, 2018 Date of Discharge: Oct 22, 2018 Admitting Diagnosis: Acute alcohol withdrawal delerium Final Diagnosis Problems Medical Problems: (1) Alcohol abuse Status: Acute (2) Anxiety Status: Acute Brief Hospital Course Allergies Allergies Coded Allergies Type Severity Reaction Last Updated Verified No Known Drug Allergies 10/19/18 No Vital Signs Vital Signs Date Time Temp Pulse Resp B/P (MAP) Pulse Ox O2 Delivery O2 Flow Rate FiO2 10/22/18 08:36 Room Air 10/22/18 07:00 97.9 50 18 140/92 (108) 97 97.9 Lab Results Laboratory Tests Test 10/21/18 11:30 Sodium Level 141 mmol/L (136-145) Potassium Level 4.1 mmol/L (3.5-5.1) Chloride Level 107 mmol/L (98-107) Carbon Dioxide Level 25 mmol/L (21-32) Anion Gap 9 (6-14) Blood Urea Nitrogen 9 mg/dL (8-26) Creatinine 1.0 mg/dL (0.7-1.3) Estimated GFR (Cockcroft-Gault) 82.3 BUN/Creatinine Ratio 9 (6-20) Glucose Level 119 mg/dL (70-99) Calcium Level 8.0 mg/dL (8.5-10.1) Magnesium Level 1.7 mg/dL (1.8-2.4) Total Bilirubin 1.7 mg/dL (0.2-1.0) Aspartate Amino Transf (AST/SGOT) 60 U/L (15-37) Alanine Aminotransferase (ALT/SGPT) 41 U/L (16-63) Alkaline Phosphatase 88 U/L (46-116) Total Protein 6.0 g/dL (6.4-8.2) Albumin 2.9 g/dL (3.4-5.0) Albumin/Globulin Ratio 0.9 (1.0-1.7) Laboratory Tests Test 10/21/18 11:30 Sodium Level 141 mmol/L (136-145) Potassium Level 4.1 mmol/L (3.5-5.1) Chloride Level 107 mmol/L (98-107) Carbon Dioxide Level 25 mmol/L (21-32) Anion Gap 9 (6-14) Blood Urea Nitrogen 9 mg/dL (8-26) Creatinine 1.0 mg/dL (0.7-1.3) Estimated GFR (Cockcroft-Gault) 82.3 BUN/Creatinine Ratio 9 (6-20) Glucose Level 119 mg/dL (70-99) Calcium Level 8.0 mg/dL (8.5-10.1) Magnesium Level 1.7 mg/dL (1.8-2.4) Total Bilirubin 1.7 mg/dL (0.2-1.0) Aspartate Amino Transf (AST/SGOT) 60 U/L (15-37) Alanine Aminotransferase (ALT/SGPT) 41 U/L (16-63) Alkaline Phosphatase 88 U/L (46-116) Total Protein 6.0 g/dL (6.4-8.2) Albumin 2.9 g/dL (3.4-5.0) Albumin/Globulin Ratio 0.9 (1.0-1.7) Brief Hospital Course 43 yo presented to the ER 10/19 seeking help with alcohol detox. Patient is heavy drinker for about 15 years. He was in rehab during [facility] time last year. He was then sober for a month then got relapsed. He would like to get into detox program again. Patient denied any chest pain, no abdominal pain, no nausea or vomiting. Patient denied suicidal ideation or homicidal ideation. Had CIWA > 18 on 10/20 but 11 4/2 in the morning on lorazepam with fewer IV doses. He would like to consider restarting his home naltrexone. Mag level 1.6 and bili up to 1.7. No BM which improved after BM and labs improved with replacement. Acute alcohol withdrawal - CIWA precautions, ativan for 3 more days. Naltrexone nightly. Hydroxyzine for anxiety. Clonidine for withdrawal sx as well. PAT team and SW to see for f/u outpatient rehabilitation, which has been arranged. Transaminitis - alcoholic hepatitis, will monitor Hypocalcemia - likely mild protein calorie malnutrition, will monitor. Tums prn Hyperglycemia - likely 2/2 initial intoxication on ETOH, will monitor. No hx of DM Hypokalemia - will replace orally, check mag Plan: Replace mag Bowel regimen Greater than 30 minutes spent on discharge. Physical Exam General: Alert, Cooperative, mild distress Abdomen: Normal bowel sounds, Soft, No tenderness, No hepatosplenomegaly, No masses Extremities: No clubbing, No cyanosis, No edema, Normal pulses, No tenderness/ swelling Skin: No rashes, No breakdown, No significant lesion Discharge Information Condition at Discharge: Improved Follow Up: Weeks (2) Disposition/Orders: D/C to Home Scheduled Chlordiazepoxide Hcl (Chlordiazepoxide Hcl) 25 Mg Capsule, 25 MG PO PRN Q6HRS for anxiety, (Reported) Entered as Reported by: MATTHIEU ALEX on 10/20/181836 Last Action: New Order on 10/20/181836 by MATTHIEU ALEX Hydroxyzine Pamoate (Hydroxyzine Pamoate) 50 Mg Capsule, 1 CAP PO DAILY for anxiety for 30 Days, #30 Ref 1 Prescribed by: TAMMY SHABAZZ MD on 10/22/18 1039 Lisinopril (Lisinopril) 20 Mg Tablet, 1 TAB PO DAILY for HTN, #30 Ref 5 ( Reported) Entered as Reported by: MATTHIEU ALEX on 10/20/181836 Last Action: New Order on 10/20/181836 by MATTHIEU ALEX Naltrexone Hcl (Naltrexone Hcl) 50 Mg Tablet, 1 TAB PO DAILY for help prevent relapse for 30 Days, #30 Ref 2 Prescribed by: TAMMY SHABAZZ MD on 10/22/18 1039 Scheduled PRN Lorazepam (Ativan) 1 Mg Tablet, 2 MG PO PRN Q1HR PRN for WITHDRAWAL IRRITABILITY for 3 Days, #12 Prescribed by: TAMMY SHABAZZ MD on 10/22/18 1039 TAMMY SHABAZZ MD Oct 22, 2018 10:42
--- NOTE | 2018-10-22 11:08 | NUR ---
Discharge instructions and belongings reviewed with patient, verbalized understanding. Patient was escorted out of hospital via ambulation by this nurse.
== END 2018-10-22 11:12 | disposition home or self-care (01) | DRG 433 ==
LOC: ER 18:51 → 4 NORTH 23:15 → OBSVTOIN 10-20 11:28
PROVIDERS: ADMIT Internal Medicine; ATTEND Internal Medicine
DX: K70.10 Alcoholic hepatitis without ascites (principal); F10.239 Alcohol dependence with withdrawal, unspecified; E44.1 Mild protein-calorie malnutrition; E87.6 Hypokalemia; F17.210 Nicotine dependence, cigarettes, uncomplicated; R56.9 Unspecified convulsions; E83.51 Hypocalcemia; F41.9 Anxiety disorder, unspecified; R73.9 Hyperglycemia, unspecified; Z79.899 Other long term (current) drug therapy; Z68.25 Body mass index [BMI] 25.0-25.9, adult
CPT/HCPCS: 36415; 80053; 80307; 80329; 81001; 83690; 83735; 85025; 85610; 85730; 96360; G0378; G0379; G0480; J2060; J3475; J7030; 99285-25